=== PATIENT | male | born 1995 | race Caucasian/White ===

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

== ENCOUNTER 2017-01-14 12:45 | Emergency (ER) | payer BC ==
[~2017-01-14] VITALS: Ht 195.6 cm; Wt 74.4 kg
[~2017-01-14 12:45] MED LIST changes: +TESSALON PERLE PO
== END 2017-01-14 13:28 | disposition home or self-care (01) ==
LOC: SED 12:45
DX: J40 Bronchitis, not specified as acute or chronic (principal); F17.200 Nicotine dependence, unspecified, uncomplicated
CPT/HCPCS: 99283